=== PATIENT | female | born 1975 | race African-American/Black ===

== ENCOUNTER 2017-12-27 16:52 | Emergency (ER) | payer BC ==
[~2017-12-27] VITALS: Ht 162.6 cm; Wt 68.0 kg
[2017-12-27 16:59] VITALS: Ht 162.6 cm; Wt 68.0 kg
[2017-12-27 19:29] VITALS: BP 155/92
== END 2017-12-27 19:29 | disposition home or self-care (01) ==
LOC: ED 16:52
DX: R10.13 Epigastric pain (principal); I10 Essential (primary) hypertension; K21.9 Gastro-esophageal reflux disease without esophagitis; Z88.0 Allergy status to penicillin
CPT/HCPCS: J1885